=== PATIENT | female | born 1960 | race Caucasian/White ===

== ENCOUNTER → 2023-07-29 | Outpatient (CLI) | payer OTHER, SELFPAY ==
--- OUTSIDE RECORDS SUMMARY | 2023-07-29 08:59 | XMS RPT_ITS | CCD ---
Author Name Unknown Address [address] [place] [address] Organization [facility] Care Team Providers Care Hearing Aid Repair Technician Name Role Phone JOEY ANSHUL Eleazar Unavailable Unavailable MAGGIE, ARCADIO Unavailable Unavailable MAGGIE, ARCADIO Unavailable Unavailable Maggie, Arcadio K Unavailable Unavailable Maggie, Arcadio K Unavailable Unavailable Maggie, Arcadio K Unavailable Unavailable Chai Barry Unavailable Unavailable Maggie, Arcadio K Unavailable Unavailable Chai Barry R Unavailable Unavailable Maggie, Arcadio K Unavailable Unavailable Chai Barry R Unavailable Unavailable Chai Barry R Unavailable Unavailable Maggie, Arcadio K Unavailable Unavailable Chai Barry R Unavailable Unavailable Chai Barry R Unavailable Unavailable CitlalliChai duncan R Unavailable Unavailable Maggie, Arcadio K Unavailable Unavailable PROVIDER, UNKNOWN Admitting Unavailable PROVIDER, UNKNOWN Attending Unavailable Dr. Arcadio Serrano Attending Unavailab florence Serrano, Dr. Lazo Referring Unavailab Dr. Dung Kimbrough [facility] Un available Lauren Serranond V Unavailable [phone] CHAI BARRY Referring Unavailable Dr. Dung Serrano Primary Care Un available CHAI BARRY Attending Unavailable Dr. Dung Serrano Primary Care Un available CHAI BARRY Attending Unavailable CHAI BARRY Referring Unavailable DUNG SERRANO Primary Care SAMEERA Montes MD Attending Unavail able MAGGIE, ARCADIO Primary Care Unavailable MAGGIE ARCADIO Primary Care Unavailable MEREDITH RICCI MD Attending Unavailable Allergies Allergy Classification Reported Allergen(s) Allergy Type Date of Onset Reaction(s) Facility (1 source) penicillin; Translations: [PENICILLIN] Drug Allergy 8 [facility] Repository (2 sources) Penicillins; Translations: [penicillins] Propensity to adverse reactions to drug (disorder) [facility] Repository (1 source) ALLERGIES NOT ON FILE; Translations: [ALLERGIES NOT ON FILE] Propensity to adverse reactions (disorder) [facility] 2 Repository Medications Completed/Discontinued Medications Medication Drug Class(es) Dates Sig (Normalized) Sig (Original) glipiZIDE er 10 mg 24 hr extended release oral tablet (1 source) Sulfonylurea Start: 02-14-2020 take 1 tablet by mouth every twenty-four hours glipiZIDE XL 10 MG Oral Tablet Extended Release 24 Hour Quantity: 180 Refills: 0 Ordered: 14-Feb-2020 DO Start : 14-Feb-2020 Active 3 ml insulin glargine 100 unt/ml pen injector (1 source) Insulin Analog Start: 01-01-2020 Lantus SoloStar 100 UNIT/ML Subcutaneous Solution Pen-injector Quantity: 15 Refills: 0 Ordered: 01-Jan-2020 DO Start : 01-Jan-2020 Active 3 ml liraglutide 6 mg/ml pen injector (1 source) GLP-1 Receptor Agonist Start: 09-08-2020 Victoza 18 MG/3ML Subcutaneous Solution Pen-injector Quantity: 27 Refills: 0 Ordered: 08-Sep-2020 DO Start : 08-Sep-2020 Active lisinopril 10 mg oral tablet (1 source) Angiotensin Converting Enzyme Inhibitor Start: 08-04-2020 Lisinopril 10 MG Oral Tablet Quantity: 90 Refills: 0 Ordered: 04-Aug-2020 DO Start : 04-Aug-2020 Active Magnesium (1 source) Magnesium 200 MG Oral Tablet Quantity: 0 Refills: 0 Ordered: 28-Oct-2020 DO Active meloxicam 7.5 mg oral tablet (1 source) Nonsteroidal Anti-inflammatory Drug Start: 03-12-2020 Meloxicam 7.5 MG Oral Tablet Quantity: 90 Refills: 0 Ordered: 14-Oct-2020 DO Start : 12-Mar-2020 Active metFORMIN hydrochloride 1000 mg oral tablet (1 source) Biguanide Start: 09-08-2020 metFORMIN HCl - 1000 MG Oral Tablet Quantity: 180 Refills: 0 Ordered: 08-Sep-2020 DO Start : 08-Sep-2020 Active omeprazole 20 mg delayed release oral capsule (1 source) Proton Pump Inhibitor Start: 08-06-2019 Omeprazole 20 MG Oral Capsule Delayed Release Quantity: 90 Refills: 0 Ordered: 13-Feb-2020 DO Start : 06-Aug-2019 Active Vitamin B 12 TABS (1 source) Vitamin B 12 TAB S Quantity: 0 Refills: 0 Ordered: 28-Oct-2020 DO Active Problems Active Problems Problem Classification Problem Date Documented Da te Episodic/Chronic Other connective tissue disease (1 source) Other specified soft tissue disorders; Translations: [Other specified soft tissue disorders] Onset: 04-13-2022 Episodic Other and delivery including normal (1 source) Delivery normal; Translations: [Normal delivery] Episodic Past or Other Problems Problem Classification Problem Date Documented Da te Episodic/Chronic Nonspecific chest pain (1 source) Chest pain, unspecified; Translations: [Chest pain, unspecified] Onset: 07-02-2017 Episodic Unclassified (1 source) Asymptomatic menopausal state; Translations: [Asymptomatic menopausal state] Onset: 07-02-2017 Episodic Unclassified (1 source) Finding of menstrual bleeding; Translations: [Menstruation] Results Test Name Value Interpretation Reference Range Facil ity Vital Signs Date Time Vital Sign Value Performing Clinician Piedad brayy 04-17-2023 13:15-0400 Body height 177.8 cm Dung [facility] Work Phone: [employer] Work Phone: 04-17-2023 13:15-0400 Body mass index (BMI) [Ratio] 38.63 kg/m2 [employer] Work Phone: [employer] Work Phone: 04-17-2023 13:15-0400 Body surface area Derived from formula 2.37 m2 [employer] Work Phone: [employer] Work Phone: 04-17-2023 13:15-0400 Body weight 122.13 kg [employer] Work Phone: [employer] Work Phone: 04-17-2023 13:15-0400 Diastolic blood pressure 72 mm[Hg] Dung Anaid Maggie Work Phone: [facility] [employer] Work Phone: 04-17-2023 13:15-0400 Systolic blood pressure 128 mm[Hg] Dung [employer] Maggie Work Phone: [place] [phone] [employer] Work Phone: Encounters Encounter Date Encounter Type Care Provider Facility Start: 05-18-2023 End: 05-18-2023 ambulatory SAMEERA MANCERA MD Facility:[facility] Start: 05-02-2023 End: 05-02-2023 ambulatory [facility] [place] [facility] Start: 04-17-2023 Periodic preventive med est patient 40-64yrs Dung Serrano Work Phone: [place] [phone] [employer] Work Phone: Start: 04-17-[address] Dung Serrano Facility:[facility] Start: 04-16-2023 End: 04-17-2023 ambulatory ARCADIO SERRANO Facility:[facility] Start: 04-13-[address] Arcadio Almendarez acility:[id number] Start: 01-19-2020 Patient encounter procedure UNKNOWN PROVIDER Facility:[facility] Start: 04-25-2018 End: 04-26-2018 Patient encounter Chai Barry Facility:[facility] Start: 04-05-2018 End: 04-05-2018 Patient encounter Chai Barry Facility:[facility] Start: 04-04-2018 End: 04-05-2018 Patient encounter Chai Barry Facility:[facility] Start: 04-04-2018 End: 04-05-2018 Patient encounter Chai Barry Facility:[facility] Start: 12-25-2017 End: 12-26-2017 Ambulatory ANSHUL COOK [facility] Start: 07-02-2017 Ambulatory ARCADIO SERRANO [facility] Start: 06-14-2017 End: 06-15-2017 Patient encounter Arcadio Serrano Facility:[facility] Encounter for gynecological examination (general) (routine) without abnormal findings Dung Serrano Work Phone: [address] Work Phone: Procedures Date Procedure Procedure Detail Performing Clinician Start: 05-02-2023 BI MAMMO BILATERAL SCREENING TOMOSYNTHESIS CHAI BARRY Bilateral tubal ligation Lauren Serrano Work Phone: Payers Date Payer Category Payer Unknown [id number] 2017 Unknown 1960 Unknown [id number] [id number] 1960 Unknown [id number] 2.16.8 [id number] 1962 Unknown [id number] 2.16. [id number] 1962 Unknown [id number] 2.16. [id number] 1962 Unknown [id number] 1962 Unknown [id number] 2.16.8 [id number] 1962 Unknown [id number] 2.16.8 [id number] Social History Date Type Detail Facility No alcohol use No alcohol use [address] Work Phone: Clinical Note 04-17-2023 Note Date & Type Note Facility 04-17-2023 Note 95 Date of Procedure: 04/17/2023 Pathologist: [facility], Cytology Date Reported: 05/01/2023 Date Received: 04/17/2023 Submitting Physician: CHAI BARRY MD Attending Physician: CHAI BARRY MD FINAL CYTOLOGICAL INTERPRETATION A. THINPREP PAP CERVICAL: Specimen adequacy: SATISFACTORY FOR EVALUATION. Quality Indicator: Endocervical/transformation zone component is present. General Categorization: NEGATIVE FOR INTRAEPITHELIAL LESION OR MALIGNANCY. Descriptive Interpretation: CELLULAR CHANGES CONSISTENT WITH ATROPHY. HIGH RISK HPV TEST RESULT: HPV GENOTYPE 16 NEGATIVE HPV GENOTYPE 18 NEGATIVE HPV GENOTYPE OTHER NEGATIVE Reference Range: Negative QC review performed at [facility], [address] [place] [address] Slide(s) initially screened by a Speech Language Pathologist Prn at [facility], [address] [place] [address] Testing for high-risk (HR) type of human papilloma virus (HPV) is performed by the Patrick eunice HPV Test. The eunice HPV Test is a qualitative polymerase chain reaction that amplifies DNA of HPV16, HPV18 and 12 other high-risk HPV types (31, 33, 35, 39, 45, 51, 52, 56, 58, 59, 66, and 68) associated with cervical cancer and its precursor lesions. A positive result indicates the presence of HPV DNA due to one or more of the 14 genotypes: 16, 18, 31, 33, 35, 39, 45, 51, 52, 56, 58, 59, 66, and 68. Negative results indicate HPV DNA concentrations are undetectable or below the pre-set threshold for detection. False negative results may be associated with unoptimized sampling. A negative HR HPV result does not exclude the possibility of future cytologic HSIL or underlying CIN2-3 or cancer. This test is approved for cervical specimens by the [place] Food and Drug Administration. Results of this test should be interpreted in conjunction with the patient?s Pap test results. Please refer to ASCCP current guidelines for the use of HPV DNA testing, result interpretation, and patient management. The performance of this test was verified by the [facility] Diagnostic Laboratory at [facility]. The lab is certified under the Clinical Laboratory Amendments of 1988 (CLIA 88) as qualified to perform high complexity clinical laboratory testing. This specimen has been analyzed by the [employer] Imaging System ([employer] an automated imaging and review system, which assists the laboratory in evaluating cells on ThinPrep Pap tests. Following automated imaging, selected mejia from every slide were reviewed by a manager membership and/or pathologist. Electronically Signed Out By [facility], Cytology//MXG/LSM By the signature on this report, the individual or group listed as making the Final Interpretation/Diagnosis certifies that they have reviewed this case. Diagnostic interpretation performed at [facility] [address] [place] [address] Educational Note: Cervical cytology is a screening procedure primarily for squamous cancers and precursors and has associated false-negative and false-positive results as evidenced by published data. Your patient?s test should be interpreted in this context, together with patient?s history and clinical findings. Regular sampling and follow-up of unexplained clinical signs and symptoms are recommended to minimize false negative results. Clinical History Date of Last Menstrual Period: N/A Other Clinical Conditions: COTEST HPV(Genotype) except for ASC-H, HSIL, Carcinoma - Include HPV Genotype testing Clinical Diagnosis History: Encounter for Papanicolaou smear of cervix - (Z12.4) Source of Specimen A: THINPREP PAP CERVICAL [facility] Department of Pathology [id number] [facility] History of Present illness Narrative Note Date & Type Note Facility History of Present illness Narrative Presents for annual exam. She voices no complaints and is doing well. Denies any bowel or bladder problems. Denies any breast problems. Denies any postmenopausal bleeding. [place] [address] [employer] Work Phone: Summary Purpose Family History No Family History Records FoundUnknown Family Member Name Dates Details Family history of cardiac ar rest: Mother, Father(V17.49, Z82.49) Status:Active Family history of cardiac di sorder: Mother, Father(V17.49, Z82.49) Status:Active Family history of hypertensi on: Mother, Father(V17.49, Z82.49) Status:Active Family history of diabetes m ellitus: Mother(V18.0, Z83.3) Status:Active Family history of cerebrovas cular accident (CVA): Mother(V17.1, Z82.3) Status:Active Advance Directives No Advanced Directives Records FoundNo Advanced Directives Records FoundNo Advanced Directives Records FoundNo Advanced Directives Records FoundNo Advanced Directives Records FoundNo Advanced Directives Records FoundNo Advanced Directives Records FoundNo Advanced Directives Records FoundNo Advanced Directives Records FoundNo Advanced Directives Records FoundNo Advanced Directives Records Found Chief Complaint PATIENT IS HERE FOR YEARLY EXAM AND PAP TEST. LMP: MENOPAUSE. PATIENT DOES NOT DO SELF BREAST EXAMSAND HAS NO CONCERNS AT THIS TIME. Additional Source Comments INFORMATION SOURCE (unrecogn ized section and content) DATE CREATED AUTHOR AUTHOR'S ORGANIZ ATION 01/21/2018 [facility] DATE CREATED AUTHOR AUTHOR'S ORGANIZ ATION 04/25/2018 [facility] DATE CREATED AUTHOR AUTHOR'S ORGANIZ ATION 05/26/2018 [facility] DATE CREATED AUTHOR AUTHOR'S ORGANIZ ATION 02/15/2020 [facility] DATE CREATED AUTHOR AUTHOR'S ORGANIZ ATION 07/17/2020 [facility] DATE CREATED AUTHOR AUTHOR'S ORGANIZ ATION 04/28/2022 [facility] DATE CREATED AUTHOR AUTHOR'S ORGANIZ ATION 04/19/2023 [employer] DATE CREATED AUTHOR AUTHOR'S ORGANIZ ATION 05/05/2023 [facility] DATE CREATED AUTHOR AUTHOR'S ORGANIZ ATION 05/06/2023 [facility] DATE CREATED AUTHOR AUTHOR'S ORGANIZ ATION 05/19/2023 [facility] FOR RECORDS PERTAINING TO PATIENTS WHO ARE OR HAVE BEEN ENROLLED IN A CHEMICAL DEPENDENCY/SUBSTANCEABUSE PROGRAM, SOME INFORMATION MAY BE OMITTED. This clinical summary was aggregated from multiple sources. Caution should be exercised in using it in the provision of clinical care. This summary normalizes information from multiple sources, and as a consequence, information in this document may materially change the coding, format and clinical context of patient data. In addition, data may be omitted in some cases. CLINICAL DECISIONS SHOULD BE BASED ON THE PRIMARY CLINICAL RECORDS. [employer] [facility]. provides no warranty or guarantee of the accuracy or completeness of information in this document.
[2023-07-29 09:15] LABS: Absolute Lymphocyte Count 0.74 X10^3/uL (0.83-4.51); Absolute Neutrophil Count 8.3 X10^3/uL (2.0-7.7); Basophil# 0.06 X10^3/uL; Basophil% 0.6 % (0-1); Eosinophil# 0.33 X10^3/uL; Eosinophils% 3.3 % (0-5); Hematocrit 42.5 % (37-47); Lymphocyte # 0.74 X10^3/ul (0.83-4.51); Lymphocyte % 7.5 % (19-41); Mean Corp Hgb Conc 32.9 g/dL (32-36); Mean Corpuscular Hgb 28.3 pg (27.0-32.0); Mean Corpuscular Volume 85.9 fL (81-99); Mean Platelet Vol. 11.1 fl (6.2-12.0); Monocyte# 0.49 X10^3/uL; Monocyte% 4.9 % (0-10); NRBC Flagged by Analyzer 0 % (0-5); Neutrophil # 8.29 X10^3/uL (2.7-7.7); Neutrophil % 83.5 % (47-70); Platelet Count 152 K/mm3 (150-450); RBC Distribution Width CV 13.4 % (11.6-14.6); RBC Distribution Width SD 41.8 fl (35.1-43.9); Red Blood Count 4.95 M/mm3 (4.2-5.4); White Blood Count 9.9 K/mm3 (4.4-11.0)
[2023-07-29 09:38] LABS: ALB/GLOB Ratio 1.1 RATIO (0.9-2.4); AST(SGOT) 18 U/L (15-37); Alanine Aminotransfer ALT/SGPT 31 U/L (13-56); Albumin, Serum 3.4 g/dL (3.2-5.0); Alkaline Phosphatase 43 U/L (45-117); Anion Gap 4 (5-15); BUN 16 mg/dL (7-18); BUN/Creat Ratio 18.1 RATIO (10-20); Calcium,Total 9.4 mg/dL (8.5-10.1); Chloride 101 mmol/L (98-107); Creatinine, Serum 0.88 mg/dL (0.55-1.02); EST Glomerular Filtration Rate 69 mL/min (>60); Est Glom Filt Rate - Afr Amer 84 mL/min (>60); Globulin 3.2 g/dL (2.2-4.2); Glucose 220 mg/dL (74-106); Potassium 3.7 mmol/L (3.5-5.1); Protein, Total 6.6 g/dL (6.4-8.2); Sodium Level 132 mmol/L (136-145)
== END | disposition home or self-care (01) ==
DX: R40.0 Somnolence (principal); R05.9 Cough, unspecified
CPT/HCPCS: 36415; 80053; 85025; 87631; 87635